=== PATIENT | female | born 1965 ===

== ENCOUNTER 2018-11-20 09:30 | Emergency (ER) | payer OTHER ==
[~2018-11-20] VITALS: Ht 172.7 cm; Wt 85.7 kg
[2018-11-20] MEDS ORDERED: LISINOPRIL10 MG (09:48)
[2018-11-20] MEDS ORDERED: METOPROLOL SUCC25 MG (09:48)
[2018-11-20] MEDS ORDERED: NORVASC5 MG (09:48)
[2018-11-20] MEDS ORDERED: HYDROCHLOROTHIA50 MG (09:49)
== END 2018-11-20 13:40 | disposition home or self-care (01) ==
LOC: ER 09:30
DX: S62.660A Nondisplaced fracture of distal phalanx of right index finger, initial encounter for closed fracture (principal); W23.0XXA Caught, crushed, jammed, or pinched between moving objects, initial encounter; Y93.89 Activity, other specified; Y92.89 Other specified places as the place of occurrence of the external cause; Y99.8 Other external cause status